=== PATIENT | male | born 1950 | race Caucasian/White ===

== ENCOUNTER → 2018-01-27 | Outpatient (CLI) | payer MEDICARE, OTHER ==
[~2018-01-27] MED LIST: ALBU90OI INH; GABA800 PO; LOVA40 PO; MOME220I IH; MONDOXYNE NL100 MG PO; Prednisone20 MG PO; RXHYD5325 PO; Symbicort 16010.2 GM INH; TIOT18 IH; TRAZ50 PO; Ventolin5 MG/1 ML INH
== END | disposition home or self-care (01) ==
LOC: PLD 08:16 → LAB SHORT 08:16
DX: L30.8 Other specified dermatitis (principal)
CPT/HCPCS: 88305; 88312

== ENCOUNTER → 2018-03-16 | Outpatient (CLI) | payer MEDICARE, OTHER | END | disposition home or self-care (01) | LOC: PLD 08:10 → LAB SHORT 08:10 | DX: L30.9 Dermatitis, unspecified (principal) | CPT/HCPCS: 88305; 88312 ==

== ENCOUNTER 2018-04-16 05:52 | Inpatient (IN) | payer MEDICARE, OTHER ==
[~2018-04-16] VITALS: Ht 172.7 cm; Wt 133.4 kg
[2018-04-16] MEDS ORDERED: ALBU90OI61 INH (06:17)
[2018-04-16] MEDS ORDERED: AMLO5 PO (06:17)
[2018-04-16] MEDS ORDERED: GABA600 PO (06:18)
[2018-04-16] MEDS ORDERED: BUDE10.22 INH (06:18)
[2018-04-16] MEDS ORDERED: LISI20 PO (06:18)
[2018-04-16] MEDS ORDERED: Toprol Xl50 MG PO (06:19)
[2018-04-16] MEDS ORDERED: LOVA40 PO (06:19)
[2018-04-16] MEDS ORDERED: WARF5 PO (06:20)
[2018-04-16] MEDS ORDERED: Natural Vita200 UNIT PO (06:20)
[2018-04-16] MEDS ORDERED: PIOG15 PO (06:20)
[2018-04-16 06:28] LABS: BASOPHILS ABSOLUTE AUTO 0.03 K/mm3 (0.00-0.23); BASOPHILS PERCENT AUTO 0 % (0-2); EOSINOPHILS ABSOLUTE AUTO 0.27 K/mm3 (0.00-0.68); EOSINOPHILS PERCENT AUTO 3 % (0-6); Hematocrit 50.8 % (37.0-53.0); Hemoglobin 16.7 g/dL (13.5-17.5); IMMATURE GRAN ABSOLUTE AUTO 0.06 K/mm3 (0.00-0.10); IMMATURE GRAN PERCENT AUTO 1 % (0-1); LYMPHOCYTES ABSOLUTE AUTO 1.86 K/mm3 (0.84-5.20); LYMPHOCYTES PERCENT AUTO 21 % (21-46); MONOCYTES ABSOLUTE AUTO 0.59 K/mm3 (0.16-1.47); MONOCYTES PERCENT AUTO 7 % (4-13); Mean Corpuscular HGB 33.1 pg (26.0-34.0); Mean Corpuscular HGB Conc 32.9 g/dL (31.5-36.5); Mean Corpuscular Volume 101 fL (80-100); Mean Platelet Volume 10.2 fL (9.1-12.4); NEUTROPHILS ABSOLUTE AUTO 6.04 K/mm3 (1.96-9.15); NEUTROPHILS PERCENT AUTO 68 % (41-73); Platelet Count 252 K/mm3 (150-400); RDW Coefficient Variation 13.8 % (11.7-14.2); RDW Standard Deviation 50.9 fL (35.1-46.3); Red Blood Cell Count 5.05 M/mm3 (4.30-5.90); White Blood Cell Count 8.85 K/mm3 (4.00-11.30)
[2018-04-16 06:42] LABS: International Normalized Ratio 1.04
[2018-04-16 06:48] LABS: Alanine Aminotransfer (ALT/SGP 36 U/L (12-78); Albumin, Blood 3.9 g/dL (3.4-5.0); Alk Phos 111 U/L (50-136); Anion Gap 11 mmol/L (6-16); Aspartate Aminotrans (AST/SGOT 30 U/L (12-37); Bilirubin, Total 0.4 mg/dL (0.1-1.0); Blood Urea Nitrogen 26 mg/dL (8-24); Bun/Creatinine Ratio 23.2 (12.0-20.0); CO2, Blood 22 mmol/L (21-32); Calcium, Blood 8.5 mg/dL (8.5-10.1); Chloride, Blood 109 mmol/L (98-108); Creatinine, Blood 1.12 mg/dL (0.60-1.20); Glomerular Filtration Rate >60 (60-); Glucose, Blood 267 mg/dL (70-99); Potassium, Blood 4.3 mmol/L (3.5-5.5); Sodium, Blood 142 mmol/L (136-145); Total Protein, Blood 7.9 g/dL (6.4-8.2); Troponin I 0.406 ng/mL (0.000-0.040)
[2018-04-16 10:17] LABS: Creatine Kinase MB 15.1 ng/mL (0.0-3.6)
[2018-04-16 10:30] LABS: Troponin I 1.09 ng/mL (0.000-0.040)
[2018-04-16 16:12] LABS: Creatine Kinase MB 26.2 ng/mL (0.0-3.6)
[2018-04-16 16:21] LABS: Creatine Kinase MB Index 8.1 (0.0-4.0)
[2018-04-16 16:30] LABS: Troponin I 3.4 ng/mL (0.000-0.040)
--- NOTE | 2018-04-16 18:28 | NUR ---
PT ARRIVED TO PCU 2 VIA GURNEY, HE IS ABLE TO STAND AND TRANSFER TO BED INDEP. HE IS A/OX2, COOPERATIVE WITH CARE, FOLLOWS COMMANDS WELL, DENIES PAIN AT THIS TIME, LUNGS HAVE EXP WHEEZING T/O, HE REPORT NONPRODUCTIVE COUGH, HE IS A CURRENT SMOKER, HE FELT THAT 02 WAS NOT HELPFUL, HRIRR, TELE IN PLACE RUNNING AFIB PER MONITOR, SEE STRIP, NO EDEMA NOTED, PPP+2, CAP REFILL <3SEC, VS STABLE, AFEBRILE, IV SITE IS CLEAR AND PATENT, BTX4, ABD VERY LARGE SOFT NONTENDER, VOIDS WITHOUT DIFF, SKIN C/W/D, DAVID COX, CARDIOLOGY CONSULT CALLED, DR. MILTON SAW HIM TONIGHT, WILL BE DOING AN ANGIO IN THE AM, WILL KEEP NPO AFTER MIDNIGHT, PT VERBALIZED UNDERSTANDING, ORIENTED TO ROOM LAYOUT CALL SYSTEM, CALL LIGHT IN REACH.
[2018-04-17 04:12] LABS: BASOPHILS ABSOLUTE AUTO 0.03 K/mm3 (0.00-0.23); BASOPHILS PERCENT AUTO 0 % (0-2); EOSINOPHILS ABSOLUTE AUTO 0.04 K/mm3 (0.00-0.68); EOSINOPHILS PERCENT AUTO 0 % (0-6); Hematocrit 47.2 % (37.0-53.0); IMMATURE GRAN ABSOLUTE AUTO 0.05 K/mm3 (0.00-0.10); IMMATURE GRAN PERCENT AUTO 0 % (0-1); LYMPHOCYTES ABSOLUTE AUTO 2.16 K/mm3 (0.84-5.20); LYMPHOCYTES PERCENT AUTO 19 % (21-46); MONOCYTES ABSOLUTE AUTO 0.75 K/mm3 (0.16-1.47); MONOCYTES PERCENT AUTO 6 % (4-13); Mean Corpuscular HGB 33.2 pg (26.0-34.0); Mean Corpuscular HGB Conc 31.8 g/dL (31.5-36.5); Mean Platelet Volume 10.9 fL (9.1-12.4); NEUTROPHILS ABSOLUTE AUTO 8.61 K/mm3 (1.96-9.15); NEUTROPHILS PERCENT AUTO 74 % (41-73); Platelet Count 248 K/mm3 (150-400); RDW Coefficient Variation 14.3 % (11.7-14.2); RDW Standard Deviation 55.6 fL (35.1-46.3); Red Blood Cell Count 4.52 M/mm3 (4.30-5.90); White Blood Cell Count 11.64 K/mm3 (4.00-11.30)
[2018-04-17 04:23] LABS: Mean Corpuscular Volume 104 fL (80-100)
[2018-04-17 04:26] LABS: International Normalized Ratio 1.14; Prothrombin Time Results 11.9 Sec (9.7-11.5)
[2018-04-17 04:33] LABS: Anion Gap 8 mmol/L (6-16); Blood Urea Nitrogen 31 mg/dL (8-24); Bun/Creatinine Ratio 24.2 (12.0-20.0); CHOL/HDL RATIO 3.9; CO2, Blood 25 mmol/L (21-32); Calcium, Blood 8.4 mg/dL (8.5-10.1); Chloride, Blood 111 mmol/L (98-108); Cholesterol 186 mg/dL (50-200); Creatinine, Blood 1.28 mg/dL (0.60-1.20); Glomerular Filtration Rate 60 (60-); Glucose, Blood 162 mg/dL (70-99); HDL Cholesterol 48 mg/dL (>39); Low Density Lipoprotein Chol 97 mg/dL (0-110); Magnesium, Blood 2.2 mg/dL (1.6-2.4); Potassium, Blood 4.2 mmol/L (3.5-5.5); Sodium, Blood 144 mmol/L (136-145); Triglycerides 203 mg/dL (30-160); Very Low Density Lipoprot Chol 40 mg/dL (6-32)
--- NOTE | 2018-04-17 07:17 | NUR ---
PATIENT SLEPT ABOUT NINE HOURS LAST NIGHT. CARDIZEM D/C'D; HEART RATE BELOW 100; PER ORDER. NO ACUTE CHANGES; VSS. REPORT GIVEN TO ANTONINO PINTO.
--- NOTE | 2018-04-17 08:09 | NUR ---
pt sitting on the side of the bed a/ox3, pleasant and cooperative with care, follows commands well, denies pain at this time, states he is starving, plan is to have an angio this am, is npo he was told this last night and again this morning. lots of education done regarding the angio and recovery. gave him printed material on the recovery of the tr band, lungs are course insp/exp wheezing t/o, but sounds a bit better than last night, he reports he has a productive cough but doesn't know what color he is producing. resp even and unlabored, is currently on r/a, hrirr, distant, tele in place running afib per monitor, see strip, 2+edema noted, however pt is obese and may be part of habitus, iv to left fa and right fa, sites are clear and patent, heperin gtt infusing, and ns at 125mls/hr, btx4, abd large, reports reg bm's and voids without diff, skin has some scabs, otherwise c/w/d, jose, up indep in room, richardson, call light in reach. b/p is slightly low, will hold b/p meds until speak with or b/p comes up. call light in reach.
--- NOTE | 2018-04-17 13:15 | NUR ---
pt back from cath, tr band in place, site is clear. vs stable. pt denies pain, hep gtt infusing. call light in reach.
--- NOTE | 2018-04-17 18:58 | NUR ---
pt will be discharged tonight, will need bypass soon as an outpt. he understands. tr band has been doing well, is completely deflated, will pass to night rn to remove and change dressing. call light in reach.
[2018-04-17] MEDS ORDERED: ACET325 PO (20:25)
[2018-04-17] MEDS ORDERED: ASPI81CH PO (20:26)
[2018-04-17] MEDS ORDERED: CLOP75 PO (20:27)
[2018-04-17] MEDS ORDERED: DILT60 PO (20:28)
[2018-04-17] MEDS ORDERED: NITR.4SL SL (20:29)
[2018-04-17] MEDS ORDERED: NICO21TP TOP (20:29)
[2018-04-17] MEDS ORDERED: PRED20 PO (20:30)
[2018-04-17] MEDS ORDERED: PANT40 PO (20:31)
[2018-04-17] MEDS ORDERED: PROM25 PO (20:31)
--- NOTE | 2018-04-17 20:50 | NUR ---
DISCHARGE PT WAS SET TO BE DC'D AT SHIFT CHANGE. DISCHARGE PACKET COMPLETED AND PT EDUCATION DONE. PT GIVEN REFERRAL INFO FOR CARDIO, AND PCP. PT ANGIO SITE INSPECTED AND WNL, NO HEMATOMAS NOTED. ALL BELONGS GATHERED AND SENT WITH PT. NO BELONGINGS LEFT IN ROOM. PT LEFT VIA WC W/ GEAR TESTER.
== END 2018-04-17 20:47 | disposition home or self-care (01) | DRG 281 ==
LOC: ER 05:52 → PCU 07:54 → ERHOLD 07:54 → PCU 14:40
PROVIDERS: Emergency Medicine; ADMIT Family Medicine
PROC: B2111ZZ Fluoroscopy of Multiple Coronary Arteries using Low Osmolar Contrast (ICD-10-PCS; principal; 2018-04-17)
PROC: 4A023N7 Measurement of Cardiac Sampling and Pressure, Left Heart, Percutaneous Approach (ICD-10-PCS; 2018-04-17)
DX: I21.4 Non-ST elevation (NSTEMI) myocardial infarction (principal); Z68.41 Body mass index [BMI] 40.0-44.9, adult; Z79.01 Long term (current) use of anticoagulants; J44.9 Chronic obstructive pulmonary disease, unspecified; Z96.642 Presence of left artificial hip joint; F17.210 Nicotine dependence, cigarettes, uncomplicated; I48.0 Paroxysmal atrial fibrillation; E88.81 Metabolic syndrome and other insulin resistance; Z66 Do not resuscitate; E66.01 Morbid (severe) obesity due to excess calories; I10 Essential (primary) hypertension; E11.65 Type 2 diabetes mellitus with hyperglycemia; Z79.82 Long term (current) use of aspirin
CPT/HCPCS: 36415; 71046; 80048; 80053; 80061; 82550; 82553; 82947; 83036; 83735; 83880; 84100; 84443; 84484; 85025; 85347; 85610; 85730; 93005; 93010; 93306; 93458; 94640; 94760; 96374; 96375; 99152; 99153; 99285-25; C1769; C1894; C9113; J1644; J2250; J3010; J7030; Q9967

== ENCOUNTER → 2018-06-17 | Outpatient (CLI) | payer MEDICARE, OTHER ==
[~2018-06-17] MED LIST changes: +ACET325 PO; +ALBU90OI61 INH; +AMLO5 PO; +ASPI81CH PO; +BUDE10.22 INH; +CLOP75 PO; +DILT60 PO; +GABA600 PO; +LISI20 PO; +NICO21TP TOP; +NITR.4SL SL; +Natural Vita200 UNIT PO; +PANT40 PO; +PIOG15 PO; +PRED20 PO; +PROM25 PO; +Toprol Xl50 MG PO; +WARF5 PO
[2018-06-17 17:33] LABS: International Normalized Ratio 1.62; Prothrombin Time Results 16.4 Sec (9.7-11.5)
== END | disposition home or self-care (01) ==
LOC: LAB EV 16:23 → LAB SHORT 16:23
PROVIDERS: Physician Assistant Surgical
DX: Z79.01 Long term (current) use of anticoagulants (principal); Z51.81 Encounter for therapeutic drug level monitoring
CPT/HCPCS: 85610

== ENCOUNTER 2018-06-19 16:46 | Emergency (ER) | payer MEDICARE, OTHER ==
[~2018-06-19] VITALS: Ht 172.7 cm; Wt 127.5 kg
[2018-06-19 17:24] LABS: BASOPHILS ABSOLUTE AUTO 0.04 K/mm3 (0.00-0.23); BASOPHILS PERCENT AUTO 0 % (0-2); EOSINOPHILS ABSOLUTE AUTO 0.46 K/mm3 (0.00-0.68); EOSINOPHILS PERCENT AUTO 5 % (0-6); Hematocrit 46.8 % (37.0-53.0); Hemoglobin 14.5 g/dL (13.5-17.5); IMMATURE GRAN ABSOLUTE AUTO 0.03 K/mm3 (0.00-0.10); IMMATURE GRAN PERCENT AUTO 0 % (0-1); LYMPHOCYTES ABSOLUTE AUTO 2.13 K/mm3 (0.84-5.20); LYMPHOCYTES PERCENT AUTO 24 % (21-46); MONOCYTES ABSOLUTE AUTO 0.73 K/mm3 (0.16-1.47); MONOCYTES PERCENT AUTO 8 % (4-13); Mean Corpuscular HGB 30.3 pg (26.0-34.0); Mean Corpuscular Volume 98 fL (80-100); Mean Platelet Volume 10.2 fL (9.1-12.4); NEUTROPHILS ABSOLUTE AUTO 5.51 K/mm3 (1.96-9.15); NEUTROPHILS PERCENT AUTO 62 % (41-73); Platelet Count 301 K/mm3 (150-400); RDW Standard Deviation 51.3 fL (35.1-46.3); Red Blood Cell Count 4.79 M/mm3 (4.30-5.90)
[2018-06-19 17:52] LABS: Alanine Aminotransfer (ALT/SGP 26 U/L (12-78); Albumin, Blood 3.3 g/dL (3.4-5.0); Albumin/Globulin Ratio 0.8 (0.8-1.8); Alk Phos 121 U/L (50-136); Anion Gap 5 mmol/L (6-16); Aspartate Aminotrans (AST/SGOT 21 U/L (12-37); Bilirubin, Total 0.3 mg/dL (0.1-1.0); Blood Urea Nitrogen 21 mg/dL (8-24); CO2, Blood 28 mmol/L (21-32); Calcium, Blood 8.5 mg/dL (8.5-10.1); Chloride, Blood 109 mmol/L (98-108); Creatinine, Blood 1.05 mg/dL (0.60-1.20); Globulin, Blood 4.3 g/dL (2.2-4.0); Glomerular Filtration Rate >60 (60-); Glucose, Blood 136 mg/dL (70-99); Potassium, Blood 3.9 mmol/L (3.5-5.5); Sodium, Blood 142 mmol/L (136-145); Total Protein, Blood 7.6 g/dL (6.4-8.2); Troponin I <0.015 ng/mL (0.000-0.040)
== END 2018-06-19 22:27 | disposition home or self-care (01) ==
LOC: ER 16:46
PROVIDERS: Emergency Medicine
DX: J44.1 Chronic obstructive pulmonary disease with (acute) exacerbation (principal); J18.9 Pneumonia, unspecified organism; L03.116 Cellulitis of left lower limb; I48.91 Unspecified atrial fibrillation; E11.9 Type 2 diabetes mellitus without complications; I25.10 Atherosclerotic heart disease of native coronary artery without angina pectoris; E66.9 Obesity, unspecified; F17.210 Nicotine dependence, cigarettes, uncomplicated; Z79.82 Long term (current) use of aspirin; Z79.01 Long term (current) use of anticoagulants; Z79.899 Other long term (current) drug therapy; Z79.52 Long term (current) use of systemic steroids; Z95.1 Presence of aortocoronary bypass graft
CPT/HCPCS: 36415; 71046; 80053; 83880; 84484; 85025; 93005; 93010; 93971; 94644; 96374; 99285-25; J2930

== ENCOUNTER → 2018-08-26 | Outpatient (CLI) | payer MEDICARE, OTHER | END | disposition home or self-care (01) | LOC: LAB SHORT 12:29 → LAB 12:29 | DX: R60.9 Edema, unspecified (principal) | CPT/HCPCS: 83880 ==

== ENCOUNTER → 2020-07-07 | Outpatient (CLI) | payer MEDICARE, OTHER ==
[2020-07-07 13:32] LABS: Creatinine Urine 40.9 mg/dL (27.00-270.00); Microalbumin, Urine Quant. 8.21 mg/L (0.000-20.000); Protein, Urine Quantitative 5.5 mg/dL (0.0-11.9)
== END | disposition home or self-care (01) ==
LOC: LAB 07:45 → LAB SHORT 07:45 → LAB FUT 07-05 12:05
PROVIDERS: Internal Medicine Nephrology
DX: N18.30 Chronic kidney disease, stage 3 unspecified (principal); D63.1 Anemia in chronic kidney disease; N25.81 Secondary hyperparathyroidism of renal origin; E55.9 Vitamin D deficiency, unspecified; E78.00 Pure hypercholesterolemia, unspecified; D51.8 Other vitamin B12 deficiency anemias; D52.8 Other folate deficiency anemias; D50.9 Iron deficiency anemia, unspecified; R76.9 Abnormal immunological finding in serum, unspecified; R94.5 Abnormal results of liver function studies; R94.6 Abnormal results of thyroid function studies
CPT/HCPCS: 81050; 82043; 82570; 84156

== ENCOUNTER 2022-09-17 08:05 | Inpatient (IN) | payer MEDICARE, OTHER ==
[~2022-09-17] VITALS: Ht 172.7 cm; Wt 126.4 kg
[2022-09-17] VITALS (12 sets, daily range): BP systolic 83–110; BP diastolic 44–65
[~2022-09-17 08:05] MED LIST changes: +GABA300 PO; -GABA600 PO; -LISI20 PO; +Prinivil10 MG PO; -WARF5 PO
[2022-09-17] MEDS ORDERED: FLUT1DIS5 INH (08:22)
[2022-09-17] MEDS ORDERED: LIPITOR80 MG PO (08:23)
[2022-09-17] MEDS ORDERED: FENO48 PO (08:24)
[2022-09-17] MEDS ORDERED: GLIP5ER PO (08:25)
[2022-09-17] MEDS ORDERED: UMECLIDINIUM (08:26)
[2022-09-17] MEDS ORDERED: METF500 PO (08:26)
[2022-09-17] MEDS ORDERED: METOPROLOL SUCC25 MG PO (08:27)
[2022-09-17] MEDS ORDERED: NUCALA100 MG/1 M SC (08:28)
[2022-09-17 11:10] LABS: BASOPHILS ABSOLUTE AUTO 0.02 K/mm3 (0.00-0.23); BASOPHILS PERCENT AUTO 0 % (0-2); EOSINOPHILS ABSOLUTE AUTO 0.34 K/mm3 (0.00-0.68); EOSINOPHILS PERCENT AUTO 3 % (0-6); Hematocrit 45.9 % (37.0-53.0); IMMATURE GRAN ABSOLUTE AUTO 0.04 K/mm3 (0.00-0.10); IMMATURE GRAN PERCENT AUTO 0 % (0-1); LYMPHOCYTES ABSOLUTE AUTO 2.08 K/mm3 (0.84-5.20); LYMPHOCYTES PERCENT AUTO 21 % (21-46); MONOCYTES ABSOLUTE AUTO 0.81 K/mm3 (0.16-1.47); MONOCYTES PERCENT AUTO 8 % (4-13); Mean Corpuscular HGB 32.8 pg (26.0-34.0); Mean Corpuscular HGB Conc 32.7 g/dL (31.5-36.5); Mean Corpuscular Volume 100 fL (80-100); Mean Platelet Volume 10.9 fL (9.1-12.4); NEUTROPHILS ABSOLUTE AUTO 6.69 K/mm3 (1.96-9.15); NEUTROPHILS PERCENT AUTO 67 % (41-73); Platelet Count 194 K/mm3 (150-400); RDW Coefficient Variation 13.9 % (11.7-14.2); RDW Standard Deviation 50.9 fL (35.1-46.3); Red Blood Cell Count 4.57 M/mm3 (4.30-5.90); White Blood Cell Count 9.98 K/mm3 (4.00-11.30)
[2022-09-17 11:37] LABS: Bilirubin, Total 0.3 mg/dL (0.1-1.0); Bun/Creatinine Ratio 19.2 (12.0-20.0); Calcium, Blood 7.1 mg/dL (8.5-10.1); Creatinine, Blood 4.84 mg/dL (0.60-1.20); Globulin, Blood 3.1 g/dL (2.2-4.0); Potassium, Blood 4.3 mmol/L (3.5-5.5); Total Protein, Blood 6.1 g/dL (6.4-8.2)
[2022-09-17] MEDS ORDERED: TAMSULOSIN HCL0.4 M1 PO (14:20)
[2022-09-17 14:43] LABS: International Normalized Ratio 1.86; Prothrombin Time Results 18.9 Sec (9.7-11.5)
[2022-09-17] MEDS ORDERED: WARF5 PO (14:53)
[2022-09-17] MEDS ORDERED: ALBU2.5V5 INH (14:55)
[2022-09-17] MEDS ORDERED: OMEGA-3 FISH O1 EAC6 PO (14:56)
--- NOTE | 2022-09-17 18:25 | NUR ---
PT ARRIVED IN THE ROOM VIA GURNEY FROM [facility], REPORT RECEIVED FROM SAAD RN, PT ABLE TO TRANSFER TO PCU BED SBA. PT IS HERE FOR JUNAID LOW BP, SBP HAS BEEN ON THE 80-90'S UPON ARRIVAL WITH MAP 59-65'S, 3RD BAG OF LR BOLUS INFUSING UPON ARRIVAL, SATS ABOVE 90% ON RA, HRR SR/SB 50-60'S, AFEBRILE. PT IS A CEDS SMOKES SHARIF A PACK OF CIGARETTE/DAY NICOTINE PATCH PLACED ON RIGHT SHOULDER BACK, EDCUATED ABOUT SMOKING POLICY AND IGNITION RISKS, PT DENIES ANY IGNITIONS SOURCES WITH HIS BELONGINGS. PT DENIES ANY CHEST PAIN/PRESSURE HAS SOME MILD SOB WITH MOVEMENTS/EXERTION, PT ABLE TO AMBULATE TO THE BATHROOM WITH NO ISSUES, NO DIZZINESS, NAUSEA, OR FEELING LIGHTHEADED. PT EXPRESSESS FEELING OF FRUSTRATION OF BEING IN THE HOSPITAL BEFORE HIS BIRTHDAY, CAN GET IRRITATED EASILY. PT HASN'T VOIDED SINCE THIS MORNING, PER RENAL KEIRY AND REPORT FROM ER PT WAS RETAINING 180MLS URINE OUTPUT PT RECEIVED 3L OF FLUIDS IN TOTAL THE 4TH BAG IS CURRENTLY RUNNING AT 125MLS/HR. PT WISHES TO BE DNR, DNR BAND PLACED ON LEFT ARM. PT AWAITING FOR DINNER TRAY SITTING ON THE SIDE OF THE BED, CALL LIGHTS IN REACH WILL REPORT TO ONCOMING SHIFT
[2022-09-18] VITALS (7 sets, daily range): BP systolic 105–147; BP diastolic 52–79
[2022-09-18 03:07] LABS: BASOPHILS ABSOLUTE AUTO 0.02 K/mm3 (0.00-0.23); BASOPHILS PERCENT AUTO 0 % (0-2); EOSINOPHILS ABSOLUTE AUTO 0.42 K/mm3 (0.00-0.68); EOSINOPHILS PERCENT AUTO 4 % (0-6); Hematocrit 44.6 % (37.0-53.0); Hemoglobin 14.7 g/dL (13.5-17.5); IMMATURE GRAN ABSOLUTE AUTO 0.03 K/mm3 (0.00-0.10); IMMATURE GRAN PERCENT AUTO 0 % (0-1); LYMPHOCYTES PERCENT AUTO 18 % (21-46); MONOCYTES ABSOLUTE AUTO 0.77 K/mm3 (0.16-1.47); MONOCYTES PERCENT AUTO 8 % (4-13); Mean Corpuscular HGB 33.2 pg (26.0-34.0); Mean Corpuscular Volume 101 fL (80-100); Mean Platelet Volume 10.9 fL (9.1-12.4); NEUTROPHILS ABSOLUTE AUTO 6.91 K/mm3 (1.96-9.15); NEUTROPHILS PERCENT AUTO 70 % (41-73); Platelet Count 187 K/mm3 (150-400); RDW Coefficient Variation 13.7 % (11.7-14.2); RDW Standard Deviation 50.9 fL (35.1-46.3); Red Blood Cell Count 4.43 M/mm3 (4.30-5.90); White Blood Cell Count 9.95 K/mm3 (4.00-11.30)
[2022-09-18 03:22] LABS: International Normalized Ratio 2.15; Prothrombin Time Results 21.6 Sec (9.7-11.5)
[2022-09-18 03:33] LABS: Bilirubin, Total 0.2 mg/dL (0.1-1.0); Bun/Creatinine Ratio 23.6 (12.0-20.0); Calcium, Blood 7.2 mg/dL (8.5-10.1); Creatinine, Blood 3.9 mg/dL (0.60-1.20); Globulin, Blood 2.9 g/dL (2.2-4.0); Potassium, Blood 3.9 mmol/L (3.5-5.5); Total Protein, Blood 5.9 g/dL (6.4-8.2)
--- NOTE | 2022-09-18 05:31 | NUR ---
SHIFT SUMMARY PT IS A/Ox4 AND COOPERATIVE WITH STAFF. ANSWERS QUESTIONS APPROPRIATELY AND ABLE TO HIS NEEDS KNOWN. NO ACUTE EVENTS OVER NIGHT FOR PT WAS ABLE TO GET INTERMITTENT EPISODES OF SLEEP. CAN BE QUICK TO IRRITATION AT TIMES, BUT ABLE CALM PT DOWN AFTER EXPLAINING PURPOSES TO VARIOUS LAB OR TREATMENT BEING CONDUCTED. CARDIAC, REMAINS IN SB-SR WITH NO C/O CP OR PRESSURE T/O THE NIGHT. SBP HAS IMPROVED OVER THE SHIFT RANGING 110-130'S. RESPIRATORY, MAINTAINS SPO2 >90% ON RA NO REPORTS OF SOB OR DYSPNEA AT REST. SOME SOB NOTED WITH EXERTION. GI/, ABD SOFT/NONTENDER WITH BS PRESENT IN ALL QUADRANTS. PT VOID SEVERAL TIMES DURING THE NIGHT AFTER FINISHING ORDERED FLUID BOLUS'S. Q6HR BLADDER SCAN PERFORMED ORDERED. ONE BM DURING THIS SHIFT WELL. PT REPORTING INCREASING NEED FOR MORE NICOTINE REPLACEMENT. PT ALSO RECEIVED NICOTINE PATCH ON DAYSHI SHORTLY AFTER HIS ARRIVAL TO PCU. DR. NESS NOTIFIED OF PT'S REQUEST WITH DOSE INCREASE FROM 14MG TO 21MG. PT ABLE TO ABULATE WITH SBA TO BATHROOM WITHOUT ISSUE. ASSESSED PT FOR RISKS OF ANY IGNITION SOURCES WELL BEHAVIORS FOR INCREASED RISKS OF FIRE DANGER. PT EDUCATED ON COMMON SOURCES OF IGNITION WELL NEED TO KEEP A SAFE ENVIRONMENT. PT VOICED UNDERSTANDING. NO NEW ORDERS AT THIS TIME, WILL REPORT TO ONCOMING RN. AINSLEY SHOEMAKER OF THIS NOTE.
[2022-09-18 08:09] LABS: Source, Urine Straight Cath
[2022-09-18 09:08] LABS: Appearance, Urine Clear (Clear); Bilirubin, Urine Neg (Neg); Blood, Urine Neg (Neg); Color, Urine Yellow (P-Yellow); Glucose Qualitative, Urine Neg (Neg); Ketones, Urine Neg (Neg); Leukocyte Esterase, Urine Neg (Neg); Nitrite, Urine Neg (Neg); Protein, Urine 1+ (Neg); Urobilinogen, Urine NORM (Normal)
[2022-09-18 09:42] LABS: Microalb/Creat Ratio UR, Rand 40.089 mg/g (0.000-30.000); Microalbumin, Random Urine 44.9 mg/L (0.000-20.000)
--- NOTE | 2022-09-18 18:00 | NUR ---
PT SUMMARY: PT WITH IMPROVED URINE OUTPUT HAD ABOUT 1000MLS CLEAR YELLOW FOR THE SHIFT. VITALS HAS BEEN STABLE HRR SR 60-70'S, SBPS 130'S, SATS ABOVE 90% ON RA, AFEBRILE. ORDER TO START MAINTENANCE FLUID LR AT 125MLS/HR. PT WAS EXPECTING TO GO HOME TOMORROW. REPEAT LABS IN AM. NO ACUTE CHANGE FOR THE SHIFT, DENIES CHEST PAIN/PRESSURE. PT C/O NEUROPATHIC PAIN NO BLE, GABAPENTIN INCREASED TO 300MG BID. PT WORKED WITH PT/OT, SBA FOR TRANSFERS, CALLS APPROPRIATELY. PT SHOWERED TODAY ALSO HAD A NORMAL BM. NO OTHER ISSUES AT THIS TIME, CALL LIGHTS IN REACH, WILL REPORT TO ONCOMING SHIFT
--- NOTE | 2022-09-18 21:11 | NUR ---
SAFETY & EDUCATION PT & FAMILY EDUCATED RE: IGNITION SOURCES AND RISK OF INJURY WHILE OXYGEN IS IN USE. PT DENIES SMOKING & PT AND FAMILY VERBALIZE UNDERSTANDING.
[2022-09-19 03:33] VITALS: BP 126/75
[2022-09-19 04:35] LABS: BASOPHILS ABSOLUTE AUTO 0.03 K/mm3 (0.00-0.23); BASOPHILS PERCENT AUTO 0 % (0-2); EOSINOPHILS PERCENT AUTO 4 % (0-6); Hematocrit 45.3 % (37.0-53.0); Hemoglobin 14.7 g/dL (13.5-17.5); IMMATURE GRAN ABSOLUTE AUTO 0.02 K/mm3 (0.00-0.10); IMMATURE GRAN PERCENT AUTO 0 % (0-1); LYMPHOCYTES ABSOLUTE AUTO 1.59 K/mm3 (0.84-5.20); LYMPHOCYTES PERCENT AUTO 21 % (21-46); MONOCYTES ABSOLUTE AUTO 0.65 K/mm3 (0.16-1.47); MONOCYTES PERCENT AUTO 9 % (4-13); Mean Corpuscular HGB Conc 32.5 g/dL (31.5-36.5); Mean Corpuscular Volume 102 fL (80-100); Mean Platelet Volume 11.1 fL (9.1-12.4); NEUTROPHILS ABSOLUTE AUTO 5.05 K/mm3 (1.96-9.15); NEUTROPHILS PERCENT AUTO 66 % (41-73); Platelet Count 196 K/mm3 (150-400); RDW Coefficient Variation 13.6 % (11.7-14.2); RDW Standard Deviation 51.7 fL (35.1-46.3); Red Blood Cell Count 4.46 M/mm3 (4.30-5.90); White Blood Cell Count 7.64 K/mm3 (4.00-11.30)
--- NOTE | 2022-09-19 04:37 | NUR ---
SHIFT SUMMARY SEE PREVIOUS NOTE. PT A&Ox4, CALLS AND COMMUNICATES NEEDS APPROPRIATELY. PT STATES THAT HE IS HOPEFUL AND READY TO GO HOME TODAY. BP STABLE, SINUS 60's, DENIES CP/PRESSURE. SpO2> 92% RA, DENIES SOB. SBA/IND IN ROOM WITH WALKER. LR INFUSING PER EMAR. PT CONTINENT OF URINE, NO BM THIS SHIFT. NO OTHER EVENTS, WILL REPORT TO ONCOMING RN.
[2022-09-19 04:47] LABS: International Normalized Ratio 2.97; Prothrombin Time Results 29.3 Sec (9.7-11.5)
[2022-09-19 05:02] LABS: Bilirubin, Total 0.3 mg/dL (0.1-1.0); Calcium, Blood 7.6 mg/dL (8.5-10.1); Creatinine, Blood 2.8 mg/dL (0.60-1.20); Globulin, Blood 3.1 g/dL (2.2-4.0); Potassium, Blood 4.3 mmol/L (3.5-5.5); Total Protein, Blood 6.1 g/dL (6.4-8.2)
[2022-09-19 08:19] VITALS: BP 124/69
[2022-09-19] MEDS ORDERED: NICO21TP TOP (11:10)
[2022-09-19] MEDS ORDERED: WARF5 PO (11:14)
[2022-09-19] MEDS ORDERED: OMEGA-3 + D SO1 EACH PO (11:14)
[2022-09-19] MEDS ORDERED: TAMS.4ER PO (11:14)
[2022-09-19 12:27] VITALS: BP 156/79
--- NOTE | 2022-09-19 12:27 | NUR ---
DISCHARGE SUMMARY ALERT, ORIENTED, IND, AND COOPERATIVE. TOLERATING RENAL DIET AND FLUIDS. LR RUNNING AT [address] MORALES RENAL LABS ARE IMPROVED ENOUGH FOR PATIENT TO DISCHARGE. PLAN IS TO FOLLOW UP CLOSELY WITH PCP AND RECHECK BMP IN 3 DAYS. IV DC'D WNL. DISCHARGE EDUCATION GIVEN ON NEW MEDS AND FOLLOW UP WITH PCP AND FOR LABS. PATIENT LEFT UNIT AT 1215 VIA WHEELCHAIR FOR HOME.
== END 2022-09-19 12:15 | disposition home or self-care (01) | DRG 683 ==
LOC: ER 08:05 → PCU 08:06
PROVIDERS: Family Medicine; Family Medicine Adult Medicine; ADMIT Internal Medicine
DX: N17.9 Acute kidney failure, unspecified (principal); I48.20 Chronic atrial fibrillation, unspecified; E11.40 Type 2 diabetes mellitus with diabetic neuropathy, unspecified; E78.5 Hyperlipidemia, unspecified; J44.9 Chronic obstructive pulmonary disease, unspecified; F17.210 Nicotine dependence, cigarettes, uncomplicated; I95.9 Hypotension, unspecified; M25.562 Pain in left knee; Z96.642 Presence of left artificial hip joint; I25.10 Atherosclerotic heart disease of native coronary artery without angina pectoris; N40.1 Benign prostatic hyperplasia with lower urinary tract symptoms; R35.0 Frequency of micturition; E83.51 Hypocalcemia; I48.0 Paroxysmal atrial fibrillation; M17.12 Unilateral primary osteoarthritis, left knee; Z95.1 Presence of aortocoronary bypass graft; Z66 Do not resuscitate; Z79.899 Other long term (current) drug therapy; Z79.811 Long term (current) use of aromatase inhibitors; Z79.84 Long term (current) use of oral hypoglycemic drugs
CPT/HCPCS: 36415; 51798; 73562-LT; 76770; 80053; 82043; 82330; 82550; 82570; 82947; 83036; 83605; 83735; 83935; 84300; 84540; 85025; 85610; 94640; 94664; 94760; 94762; 96360; 96361; 96372-59; 96374; 97110; 97116; 97162; 99285-25; A9270; G0378; J0612; J1885; J7030; J7120